=== PATIENT | female | born 1955 | race Caucasian/White ===

== ENCOUNTER 2021-08-29 15:43 | Emergency (ER) | payer MEDICARE, OTHER ==
[~2021-08-29] VITALS: Ht 149.9 cm; Wt 64.0 kg
[2021-08-29] MEDS ORDERED: LIDOCAINE 5% PATCH TOP SCH (16:15)
[2021-08-29] MEDS ORDERED: KETOROLAC 15MG/ML VIAL IM ONE (16:15)
[2021-08-29] MEDS ORDERED: IBUPROFEN 400MG TABLET PO ONE (20:45)
[2021-08-29] MEDS ORDERED: IBUP-2028 MT (20:46)
[2021-08-29 22:11] VITALS: BP 155/86
== END 2021-08-29 22:14 | disposition home or self-care (01) ==
LOC: ER 15:43
DX: M54.59 Other low back pain (principal); I10 Essential (primary) hypertension; V49.49XA Driver injured in collision with other motor vehicles in traffic accident, initial encounter; Y93.89 Activity, other specified; Y92.488 Other paved roadways as the place of occurrence of the external cause
CPT/HCPCS: 72131; 99284